=== PATIENT | female | born 1995 | race Two or more races ===

== ENCOUNTER 2018-04-19 18:30 | Inpatient (IN) | payer SELFPAY ==
[~2018-04-19] VITALS: Ht 157.5 cm; Wt 68.5 kg
[~2018-04-19 18:30] MED LIST: ACET-704 PO; HYDR-971 PO; NAPR-514 PO
[2018-04-19] MEDS ORDERED: IV RINGERS,LACTATED 1000ML 1,000 ML IV PRN (19:30)
[2018-04-19] MEDS ORDERED: IBUPROFEN 800 MG TABLET. PO PRN (19:45)
[2018-04-19] MEDS ORDERED: TERBUTALINE 1 MG/ML VIAL. SQ PRN (19:45)
[2018-04-19] MEDS ORDERED: 0.9 % SODIUM CHLORIDE 10 ML DISP.SYRIN. IV PRN ×2 (19:45→22:00)
[2018-04-19] MEDS ORDERED: OXYTOCIN 30 UNIT/500 ML PREMIX 500 ML IV PRN ×3 (19:45→22:00)
[2018-04-19] MEDS ORDERED: fentaNYL PF VIAL 100 MCG/2 ML VIAL IV PRN (19:45)
[2018-04-19] MEDS ORDERED: LIDOCAINE 1% PF 30 ML VIAL. INJ PRN (19:45)
[2018-04-19] MEDS ORDERED: BUTORPHANOL 2 MG/ML VIAL. IV PRN ×2 (19:45)
[2018-04-19] MEDS ORDERED: IV RINGERS,LACTATED 1000ML 1,000 ML IV SCH (20:00)
[2018-04-19] MEDS ORDERED: DINOPROSTONE 10 MG SUPP.VAG VG ONE (20:00)
[2018-04-19 20:21] VITALS: BP 118/78
[2018-04-19 20:23] LABS: BASO % 1 % (0-3); EOS % 1 % (0-3); HEMOGLOBIN 12.2 g/dL (12.0-15.5); LYMPH # 1.8 x10^3/uL (1.0-4.8); LYMPH % 20 % (24-48); MEAN CORPUSCULAR HEMOGLOBIN 30 pg (25-35); MEAN CORPUSCULAR HGB CONC 34 g/dL (31-37); MEAN CORPUSCULAR VOLUME 88 fL (79-100); MONO # 0.6 x10^3/uL (0.0-1.1); MONO % 7 % (0-9); NEUT # 6.4 x10^3uL (1.8-7.7); NEUT % 72 % (31-73); PLATELET COUNT 165 x10^3/uL (140-400); RED BLOOD COUNT 4.11 x10^6/uL (3.50-5.40); RED CELL DISTRIBUTION WIDTH 13.3 % (11.5-14.5); WHITE BLOOD COUNT 8.9 x10^3/uL (4.0-11.0)
[2018-04-19] MEDS ORDERED: MAGNESIUM HYDROXIDE 2,400 MG/30 ML ORAL.SUSP. PO PRN (22:00)
[2018-04-19] MEDS ORDERED: BENZOCAINE 20% TOPICAL AEROSOL SPRAY 57GM CAN. TP PRN (22:00)
[2018-04-19] MEDS ORDERED: MAG HYDROX/ALUMINUM HYD/SIMETH 30 ML ORAL.SUSP PO PRN (22:00)
[2018-04-19] MEDS ORDERED: ZOLPIDEM 5 MG TABLET. PO PRN (22:00)
[2018-04-19] MEDS ORDERED: diphenhydrAMINE HCL 25 MG CAPSULE PO PRN (22:00)
[2018-04-19] MEDS ORDERED: HYDROCORTISONE 1% TOPICAL OINTMENT 30GM TUBE. TP PRN (22:00)
[2018-04-19] MEDS ORDERED: PHENYLEPH/MINERAL OIL/PETROLAT RECTAL OINTMENT 28GM TUBE. RC PRN (22:00)
[2018-04-19] MEDS ORDERED: SIMETHICONE 80 MG TAB.CHEW PO PRN (22:00)
[2018-04-19] MEDS ORDERED: ACETAMINOPHEN 325 MG TABLET. PO PRN (22:00)
[2018-04-19] MEDS: IBUPROFEN 800 MG TABLET. PO PRN (22:54)
[2018-04-20 00:10] VITALS: BP 102/64
[2018-04-20 01:09] VITALS: BP 115/74
[2018-04-20] MEDS: IBUPROFEN 800 MG TABLET. PO PRN ×2 (06:15→18:26)
[2018-04-20 06:25] VITALS: BP 117/80
[2018-04-20] MEDS ORDERED: FERROUS SULFATE 325 MG TABLET. PO SCH (08:00)
[2018-04-20 11:30] VITALS: BP 100/63
[2018-04-20 17:20] VITALS: BP 104/69
[2018-04-20 23:34] VITALS: BP 103/72
[2018-04-21 06:18] VITALS: BP 98/65
[2018-04-21 11:20] VITALS: BP 110/65
[2018-04-21] MEDS: IBUPROFEN 800 MG TABLET. PO PRN (15:56)
[2018-04-21 16:20] VITALS: BP 122/69
--- NOTE | 2018-05-04 07:49 | PDOC1 ---
OB - History Hx of Present Care: Good Care Ultrasounds: Normal mid trimester US Obstetrical Complications: None Medical Complications: None Past Family/Social History * Past Medical, Surgical, Family and Obstetric Histories reviewed from chart. Blood Type: A+ Rubella: Immune RPR/VDRL: Negative GBS Status: Negative HBsAG: Negative OB - Chief Complaint & HPI Date of Admission: Date of Admission: Apr 19, 2018 at 18:30 Chief Complaint/History : 2 Para: 1 EDC: May 23, 2018 Reason for admission: active labor Admission Nurse Assessment Rev: Yes OB - Admission Exam Physical Exam HEENT: Normal, Nasal Mucosa Normal, Oropharynx Normal, Moist Membranes, Fontanelles Normal Heart: Regular Rate Lungs: Clear, Equal Abdomen: Gravid Extremities: Normal Pulses, No tenderness or swelling Reflexes: Normal Cervical Dilatation: 4cm Effacement: 25% Membranes: Intact Heart Rate: Normal Accelerations: Accelerations Present Decelerations: No decelerations Contractions on Admission: 6-10 Minutes Apart Intensity: Moderate Assessment/Plan Assessment/Plan TIUP Labor ACS DEBBIE ARELLANO MD May 04, 2018 07:48
--- NOTE | 2018-05-04 07:50 | PDOC3 ---
OB DISCHARGE SUMMARY DATE OF ADMISSION: 04/19/18 DATE OF DISCHARGE: 04/21/20 REASON FOR ADMISSION: Onset of labor PROCEDURES: Ultrasound INTRAPARTUM PROCEDURES: Spontanous Vag Deliv OPERATIONS: None DISCHARGE DIAGNOSIS: Term Delivered DISCHARGE INFORMATION: Activity, Diet HOSPITAL COURSE Unremarkable CONDITION AT DISCHARGE stable DEBBIE ARELLANO MD May 04, 2018 07:50
--- NOTE | 2018-05-04 07:51 | PDOC ---
Provider Note Provider Note Late entry 04/20/18 No complaints VSs Uterus NTTP Fu in AM DEBBIE ARELLANO MD May 04, 2018 07:50
--- NOTE | 2018-05-04 07:54 | PDOC ---
VAGINAL DELIVERY DATE DATE: 04/19/18 TIME: 07:50 : 2 Para: 1 EDC: Apr 23, 2018 VAGINAL DELIVERY: VTX VACCUM ASSISTED: No PLACENTA: Spontaneous SEX: Male WEIGHT 6/13 Nuchal Cord: No Amniotic Fluid: Clear PAIN: Epidural EPISIOTOMY: No EXTENSION: No EBL 300cc COMPLICATIONS None CONDITION Stable Signs of Intrauterine Infectio: None Shoulder Dystocia: No DIAGNOSIS DEBBIE Ray MD May 04, 2018 07:54
== END 2018-04-21 19:19 | disposition home or self-care (01) | DRG 775 ==
LOC: 3 SO LND 18:30 → OBSVTOIN 18:30 → 3 SO LND 23:56
PROVIDERS: ADMIT Specialist; ATTEND Specialist
PROC: 10E0XZZ Delivery of Products of Conception, External Approach (ICD-10-PCS; principal; 2018-04-19)
PROC: 3E0R3BZ Introduction of Anesthetic Agent into Spinal Canal, Percutaneous Approach (ICD-10-PCS; 2018-04-19)
PROC: 00HU33Z Insertion of Infusion Device into Spinal Canal, Percutaneous Approach (ICD-10-PCS; 2018-04-19)
PROC: 0HQ9XZZ Repair Perineum Skin, External Approach (ICD-10-PCS; 2018-04-19)
DX: O62.3 Precipitate labor (principal); O70.0 First degree perineal laceration during delivery; Z37.0 Single live birth; Z3A.40 40 weeks gestation of pregnancy
CPT/HCPCS: 36415; 85014; 85025; 86592; 86850; 86900; 86901; G0378; J2590; J7120